=== PATIENT | female | born 1955 | race Hispanic/Latino ===

== ENCOUNTER 2018-10-06 12:44 | Emergency (ER) | payer SELFPAY | END 2018-10-06 13:45 | disposition home or self-care (01) | LOC: EDH 12:44 | DX: S21.90XA Unspecified open wound of unspecified part of thorax, initial encounter (principal); I25.10 Atherosclerotic heart disease of native coronary artery without angina pectoris; E11.9 Type 2 diabetes mellitus without complications; I10 Essential (primary) hypertension; E78.5 Hyperlipidemia, unspecified; Z98.890 Other specified postprocedural states; X58.XXXA Exposure to other specified factors, initial encounter; Y93.89 Activity, other specified; Y92.89 Other specified places as the place of occurrence of the external cause; Y99.8 Other external cause status | CPT/HCPCS: 99281 ==

== ENCOUNTER 2019-05-06 01:45 | Inpatient (IN) | payer OTHER, SELFPAY ==
[~2019-05-06] VITALS: Ht 154.9 cm; Wt 78.8 kg
[2019-05-06] MEDS ORDERED: ASPIRIN 325 MG TABLET ONE (02:01)
[2019-05-06] MEDS ORDERED: NITROGLYCERIN 1GM/1 INCH PACKET TD ONE (02:02)
[2019-05-06 02:14] LABS: BASOPHILS % (AUTO) 0.9 % (0.0-5.0); EOSINOPHILS % (AUTO) 1.6 % (0.0-8.0); HEMATOCRIT 39.4 % (36-48); LYMPHOCYTES % (AUTO) 33.5 % (21.0-51.0); MEAN CORPUSCULAR HEMOGLOBIN 30.5 pg (27.0-33.0); MEAN CORPUSCULAR HGB CONC 33.5 g/dL (32.0-36.0); MONOCYTES % (AUTO) 10.4 % (3.0-13.0); NEUTROPHILS % (AUTO) 53.6 % (40.0-77.0); NUCLEATED RED BLOOD CELLS 0.1 % (0.0-0.19); PLATELET COUNT (AUTO) 192 K/uL (130-400); RED BLOOD CELL COUNT(AUTO) 4.33 MIL/uL (4.00-5.50); WHITE BLOOD COUNT (AUTO) 9.8 K/uL (4.8-10.8)
[2019-05-06 02:25] LABS: INR 0.94 (0.85-1.15); PARTIAL THROMBOPLASTIN TIME 25.6 SEC (26.3-35.5); PROTHROMBIN TIME 9.9 SEC (9.6-11.6)
[2019-05-06 02:26] LABS: CREATININE 0.8 mg/dL (0.5-1.5)
[2019-05-06 02:30] LABS: ALBUMIN 3.7 g/dL (3.5-5.0); BILIRUBIN,TOTAL 0.3 mg/dL (0.2-1.0); TOTAL PROTEIN, SERUM 7.9 g/dL (6.0-8.3)
[2019-05-06] MEDS ORDERED: ONDANSETRON HCL 4 MG/2 ML VIAL IV PRN (06:00)
[2019-05-06] MEDS ORDERED: HYDRALAZINE HCL 20 MG/ML VIAL IV PRN (06:00)
[2019-05-06] MEDS ORDERED: ACETAMINOPHEN 325 MG TAB PO PRN (06:00)
[2019-05-06] MEDS ORDERED: NITROGLYCERIN 0.4 MG SL TAB SL PRN (06:00)
[2019-05-06] MEDS ORDERED: MORPHINE SULFATE 2 MG/ML 1ML SYG IV PRN (06:00)
--- NOTE | 2019-05-06 06:30 | NUR ---
REPORT RECEIVED FROM NELLIE GARCIA.
[2019-05-06] MEDS: INSULIN HUMULIN R 100 UNIT/ML 3ML SQ SCH ×4 (06:50→21:00)
--- NOTE | 2019-05-06 06:50 | NUR ---
PT ARRIVED TO UNIT AT THIS TIME. FAMILY AT BEDSIDE. NO DISTRESS NOTED. PT ADMITTED DUE TO CHEST PAIN THAT HAS BEEN OCCURRING FOR A FEW DAYS. HAD A STRESS TEST AT [facility], ABNORMAL DUE TO ANTERIOR WALL ISCHEMIA. PT HAS HAD A CABG IN 2010. NO PAIN AT THIS TIME.
[2019-05-06 06:51] VITALS: BP 136/75
[2019-05-06 07:46] LABS: CHOLESTEROL 253 mg/dL (<200); HDL CHOLESTEROL 53 mg/dL (35-85); LDL DIRECT 176 mg/dL (0-99); TRIGLYCERIDES 162 mg/dL (30-200)
[2019-05-06 07:46] LABS: HEMOGLOBIN A1C 7.9 % (4.0-6.0)
[2019-05-06] MEDS ORDERED: ENOXAPARIN SODIUM 40 MG/0.4 ML SYRINGE SQ SCH (09:00)
[2019-05-06] MEDS: METOPROLOL TARTRATE 25 MG TAB PO SCH ×2 (10:03→19:58)
[2019-05-06] MEDS: FAMOTIDINE 20MG TAB 20 MG TAB PO SCH ×2 (10:03→19:58)
[2019-05-06] MEDS ORDERED: CHOL200074 PO (10:30)
[2019-05-06] MEDS ORDERED: GLIP5TAB PO (10:30)
[2019-05-06] MEDS ORDERED: METO-391 PO (10:30)
[2019-05-06] MEDS ORDERED: ROSU40 PO (10:30)
[2019-05-06] MEDS ORDERED: SITA1TAB2 PO (10:30)
[2019-05-06] MEDS ORDERED: ASPI-555 PO (10:30)
[2019-05-06] MEDS ORDERED: LISI10TA7 PO (10:30)
[2019-05-06] MEDS ORDERED: CLOP75TA32 PO (10:30)
[2019-05-06] MEDS ORDERED: ARTIFICAL TEARS SOL 15 ML OU PRN (10:45)
[2019-05-06 11:30] VITALS: BP 132/67
[2019-05-06] MEDS ORDERED: SODIUM CHLORIDE 0.9% 250 ML IV ONE (12:25)
[2019-05-06] MEDS ORDERED: HEPARIN SODIUM 1000UNIT/ML 10ML VIAL IV ONE (14:22)
[2019-05-06] MEDS ORDERED: PHENYLEPHRINE HCL 10 MG/ML 1ML VIAL IV ONE (14:22)
[2019-05-06 15:00] VITALS: BP 101/49
--- NOTE | 2019-05-06 15:38 | NUR ---
D/C PLAN CM spoke to pt regarding d/c planning. Pt is ind. and lives with spouse. States spouse can assist in care if needed. Pt follows up at [facility] in [place]. CM provided community resources packet. Plan to home. CM to f/u. Addendum: 05/06/19 at 1539 by RICH SCOTT CM Amended: Links added.
[2019-05-06 19:15] VITALS: BP 128/67
[2019-05-06] MEDS ORDERED: ATORVASTATIN CALCIUM 20 MG TABLET PO SCH (21:00)
[2019-05-06 23:08] VITALS: BP 126/50
[2019-05-07] VITALS (19 sets, daily range): BP systolic 110–225; BP diastolic 49–91
--- NOTE | 2019-05-07 00:15 | NUR ---
PT SIGNED CONSENT FOR [facility] AT THIS TIME. DAUGHTER AT BEDSIDE. AA03. ESVIN. PT ABLE TO SIGN CONSENT. AWARE OF RISKS. AWARE OF NPO OF MIDNIGHT.
[2019-05-07 04:21] LABS: BASOPHILS % (AUTO) 0.8 % (0.0-5.0); EOSINOPHILS % (AUTO) 1.6 % (0.0-8.0); HEMATOCRIT 36.1 % (36-48); LYMPHOCYTES % (AUTO) 39.7 % (21.0-51.0); MEAN CORPUSCULAR HEMOGLOBIN 30.5 pg (27.0-33.0); MEAN CORPUSCULAR HGB CONC 33.8 g/dL (32.0-36.0); MEAN CORPUSCULAR VOLUME 90.2 fL (79-99); MONOCYTES % (AUTO) 10.4 % (3.0-13.0); NEUTROPHILS % (AUTO) 47.5 % (40.0-77.0); PLATELET COUNT (AUTO) 199 K/uL (130-400); RED CELL DISTRIBUTION WIDTH 12.9 % (11.0-15.5); WHITE BLOOD COUNT (AUTO) 8.1 K/uL (4.8-10.8)
[2019-05-07 04:31] LABS: CREATININE 0.9 mg/dL (0.5-1.5); POTASSIUM 4.3 mmol/L (3.5-5.1)
[2019-05-07] MEDS: INSULIN HUMULIN R 100 UNIT/ML 3ML SQ SCH ×2 (05:47→11:30)
--- NOTE | 2019-05-07 07:35 | NUR ---
ASSESSMENT ENCOUNTERED PT A&OX3, CALM COOPERATIVE AND DOES NOT APPEAR TO BE IN ANY DISTRESS NOR ANY NEURO DEFICITS PRESENT. PT DENIES PAIN, SOB, NAUSEA. PT IS AMBULATORY, GAIT STEADY AND STRONG WITH STAND BY ASSIST. PT IS NPO FOR [facility] BY DR ALVARES. CALL LIGHT WITHIN REACH, FAMILY AT BEDSIDE.
[2019-05-07] MEDS: METOPROLOL TARTRATE 25 MG TAB PO SCH (07:51)
[2019-05-07] MEDS ORDERED: CLOPIDOGREL BISULFATE 75 MG TAB PO SCH (09:00)
[2019-05-07] MEDS ORDERED: ASPIRIN 81 MG EC TAB PO SCH (09:00)
[2019-05-07] MEDS: FAMOTIDINE 20MG TAB 20 MG TAB PO SCH ×2 (09:00→21:00)
[2019-05-07] MEDS ORDERED: ASPIRIN 325 MG TABLET PO SCH (09:00)
[2019-05-07] MEDS: EZETIMIBE 10 MG TAB PO SCH (09:00)
[2019-05-07] MEDS ORDERED: LIDOCAINE HCL 1% 20 ML VIAL ONE (13:20)
[2019-05-07] MEDS ORDERED: IOHEXOL 350 MG/ML 100ML INFUS..BTL IV ONE (13:21)
[2019-05-07] MEDS ORDERED: HEPARIN SODIUM 1000UNIT/ML 10ML VIAL ONE ×2 (13:21→15:49)
[2019-05-07] MEDS ORDERED: IOHEXOL-350 50ML VIAL IV ONE (13:21)
[2019-05-07] MEDS ORDERED: IOHEXOL-350 75 ML VIAL IV ONE (14:06)
[2019-05-07] MEDS ORDERED: MORPHINE SULFATE 2 MG/ML 1ML SYG ONE (14:20)
[2019-05-07] MEDS ORDERED: ASPIRIN 325MG EC TAB 325 MG TABLET.DR PO ONE (14:26)
[2019-05-07 15:19] LABS: HEMATOCRIT 39.2 % (36-48); MEAN CORPUSCULAR HEMOGLOBIN 30.6 pg (27.0-33.0); MEAN CORPUSCULAR HGB CONC 33.6 g/dL (32.0-36.0); MEAN CORPUSCULAR VOLUME 90.9 fL (79-99); NUCLEATED RED BLOOD CELLS 0.1 % (0.0-0.19); PLATELET COUNT (AUTO) 207 K/uL (130-400); RED BLOOD CELL COUNT(AUTO) 4.31 MIL/uL (4.00-5.50); RED CELL DISTRIBUTION WIDTH 13.1 % (11.0-15.5); WHITE BLOOD COUNT (AUTO) 8.9 K/uL (4.8-10.8)
[2019-05-07 15:27] LABS: CREATININE 0.5 mg/dL (0.5-1.5); POTASSIUM 3.5 mmol/L (3.5-5.1)
[2019-05-07] MEDS ORDERED: NITROGLYCERIN 50 MG/D5% WATER 0 BOT ONE (15:31)
[2019-05-07 15:33] LABS: INR 1.07 (0.85-1.15); PROTHROMBIN TIME 11.2 SEC (9.6-11.6)
--- NOTE | 2019-05-07 15:45 | NUR ---
ULTRA SOUND OF CAROTID DONE AT THIS TIME. Addendum: 05/07/19 at 1612 by HONEY BAXTER RN RN Amended: Links added.
--- NOTE | 2019-05-07 15:45 | NUR ---
PT TO PACU, AWAKE AND ALERT. PT ABLE TO ANSWER HER QUESTIONS, DENIES CHEST PAIN AT THIS TIME. PT WITH RT FEMORAL LINE, INTACT. PT INSTRUCTED TO KEEP HER RIGHT LEG STRAIGHT. PEDAL PULSES BY DOPPLER TO BILATERAL LOWER EXT. RIGHT ARM IV KVO NORMAL SALINE. PT RESTING WELL, FAMILY CALLED TO BE WITH PT. Addendum: 05/07/19 at 1602 by HONEY BAXTER RN RN Amended: Links added.
[2019-05-07] MEDS ORDERED: PROTAMINE SULFATE 10 MG/ML 25ML VIAL IV ONE (15:49)
[2019-05-07] MEDS ORDERED: AMINOCAPROIC ACID 250 MG/ML 20 ML VIAL IV ONE (15:49)
[2019-05-07] MEDS ORDERED: NOREPINEPHRINE BITARTRATE 1 MG/1 ML ML IV ONE (15:49)
[2019-05-07] MEDS ORDERED: EPINEPHRINE 1 MG/ML AMPULE ONE (15:49)
[2019-05-07] MEDS ORDERED: PROPOFOL 10 MG/ML 20ML VIAL IV ONE (15:49)
[2019-05-07] MEDS ORDERED: SODIUM BICARB 50MEQ 50ML VIAL ONE ×3 (15:49→23:42)
[2019-05-07] MEDS ORDERED: LIDOCAINE PF 2% 5ML ABBOJECT ONE ×2 (15:49→18:48)
[2019-05-07] MEDS ORDERED: ESMOLOL HCL 10 MG/ML 10 ML VIAL ONE ×2 (15:49→18:48)
[2019-05-07] MEDS ORDERED: FENTANYL CITRATE PF 50 MCG/1 ML 20ML VIAL IJ ONE (15:50)
[2019-05-07] MEDS ORDERED: ROCURONIUM 10MG/1ML SYR 10 MG/ML ML ONE ×2 (15:50→17:50)
[2019-05-07] MEDS ORDERED: MIDAZOLAM HCL 1 MG/ML 2ML VIAL ONE (15:50)
[2019-05-07] MEDS ORDERED: NITROGLYCERIN 50 MG/D5% WATER 1 BOT ONE (15:52)
[2019-05-07] MEDS ORDERED: AMIODARONE HCL 50 MG/ML 3 ML VIAL ONE (15:53)
[2019-05-07 15:54] LABS: PARTIAL THROMBOPLASTIN TIME > 120.0 SEC (26.3-35.5)
[2019-05-07] MEDS ORDERED: BACITRACIN 50,000 UNIT VIAL ONE (16:05)
[2019-05-07] MEDS ORDERED: PAPAVERINE HCL 30 MG/ML 2ML VIAL ONE (16:05)
--- NOTE | 2019-05-07 16:13 | NUR ---
DR. LINDA TO SEE PT, PROCEDURE EXPLAINED. PT REMAINS STABLE. FAMILY A CHANCE TO SEE PT. FEMORAL LINE INTACT. PEDAL PULSES BY DOPPLER. PT REMAINS STABLE. Addendum: 05/07/19 at 1615 by HONEY BAXTER RN RN Amended: Links added.
[2019-05-07] MEDS ORDERED: CEFAZOLIN SODIUM 1 GM VIAL ONE ×2 (16:14→20:03)
--- NOTE | 2019-05-07 16:17 | NUR ---
PT TRANSFERRED TO OR, BY RADHA VILLA. RADHA VILLA ALSO TOLD PTT OVER 120 AT 1550
[2019-05-07 16:54] LABS: ABG BASE EXCESS -0.9 mmol/L (-2.0-3.0); ABG HCO3 20.3 mmol/L (21.0-28.0); ABG OXYGEN SATURATION 99.3 % (95.0-99.0); ABG PCO2 25 mmHg (32-45)
[2019-05-07 18:24] LABS: ABG BASE EXCESS 4.4 mmol/L (-2.0-3.0); ABG OXYGEN SATURATION 99.2 % (95.0-99.0); ABG PCO2 33 mmHg (32-45)
[2019-05-07 18:44] LABS: ABG BASE EXCESS 1.6 mmol/L (-2.0-3.0); ABG OXYGEN SATURATION 99.2 % (95.0-99.0); ABG PCO2 31 mmHg (32-45)
[2019-05-07] MEDS ORDERED: POTASSIUM CHLORIDE 20MEQ/100ML 300 ML IV ONE (18:46)
[2019-05-07] MEDS ORDERED: SODIUM CHLORIDE 0.9% 1000ML 1,000 ML IV SCH (19:30)
[2019-05-07] MEDS ORDERED: SODIUM CHLORIDE 0.9% 10 ML VIAL IVP PRN (19:30)
[2019-05-07] MEDS ORDERED: DEXTROSE 50%-WATER 50 ML DISP.SYRIN IV PRN (19:30)
[2019-05-07] MEDS ORDERED: ACETAMINOPHEN 650 MG SUPPOSITORY RC PRN (19:30)
[2019-05-07] MEDS ORDERED: MORPHINE SULFATE 4 MG/1ML SYG IV PRN (19:30)
[2019-05-07] MEDS ORDERED: AMINOCAPROIC ACID 15,000 MG in SODIUM CHLORIDE 0.9% 250 ML IV SCH (19:30)
[2019-05-07] MEDS ORDERED: ACETAMINOPHEN 325 MG TAB PO PRN (19:30)
[2019-05-07] MEDS ORDERED: GLUCAGON 1MG KIT 1 MG ML IM PRN (19:30)
[2019-05-07] MEDS ORDERED: CALCIUM GLUCONATE 1 GM in SODIUM CHLORIDE 0.9% 50 ML IV PRN (19:30)
[2019-05-07] MEDS ORDERED: MORPHINE SULFATE 2 MG/ML 1ML SYG IV PRN (19:30)
[2019-05-07] MEDS ORDERED: ALBUMIN (HUMAN) 5% 250 ML IV PRN (19:30)
[2019-05-07] MEDS ORDERED: EPINEPHRINE 8 MG in DEXTROSE 5%-WATER 250 ML IV PRN (19:30)
[2019-05-07] MEDS ORDERED: POTASSIUM PHOS 15 mMOL+NS250ML 250 ML IV PRN (19:30)
[2019-05-07] MEDS ORDERED: SODIUM CHLORIDE 0.9% 250 ML IV PRN (19:30)
[2019-05-07] MEDS ORDERED: SODIUM CHLORIDE 0.9% 500ML 500 ML IV SCH (19:30)
[2019-05-07] MEDS ORDERED: NITROGLYCERIN 50 MG/D5% WATER 250 BOT IV SCH (19:30)
[2019-05-07] MEDS ORDERED: PROPOFOL 1000 MG/100 ML 100 ML IV PRN (19:30)
[2019-05-07] MEDS ORDERED: NOREPINEPHRINE 4MG/NS 250ML 250 ML IV PRN (19:30)
[2019-05-07 19:47] LABS: ABG BASE EXCESS -0.7 mmol/L (-2.0-3.0); ABG HCO3 22.3 mmol/L (21.0-28.0); ABG PCO2 31 mmHg (32-45)
[2019-05-07 20:49] LABS: ABG BASE EXCESS -1.5 mmol/L (-2.0-3.0); ABG HCO3 20.8 mmol/L (21.0-28.0); ABG OXYGEN SATURATION 98.8 % (95.0-99.0); ABG PCO2 28 mmHg (32-45)
[2019-05-07 20:53] LABS: HEMATOCRIT 31.6 % (36-48); MEAN CORPUSCULAR HEMOGLOBIN 30.3 pg (27.0-33.0); MEAN CORPUSCULAR HGB CONC 33.6 g/dL (32.0-36.0); MEAN CORPUSCULAR VOLUME 90.1 fL (79-99); PLATELET COUNT (AUTO) 284 K/uL (130-400); RED BLOOD CELL COUNT(AUTO) 3.51 MIL/uL (4.00-5.50); RED CELL DISTRIBUTION WIDTH 12.9 % (11.0-15.5)
[2019-05-07 21:00] LABS: WHITE BLOOD COUNT (AUTO) 32.4 K/uL (4.8-10.8)
[2019-05-07] MEDS: ATORVASTATIN CALCIUM 20 MG TABLET PO SCH (21:00)
[2019-05-07] MEDS ORDERED: FAMOTIDINE/PF 20 MG/2 ML VIAL IV SCH (21:00)
[2019-05-07 21:01] LABS: CREATININE 0.8 mg/dL (0.5-1.5); POTASSIUM 3.8 mmol/L (3.5-5.1)
[2019-05-07 21:03] LABS: INR 1.1 (0.85-1.15); PARTIAL THROMBOPLASTIN TIME 22.9 SEC (26.3-35.5); PROTHROMBIN TIME 11.5 SEC (9.6-11.6)
[2019-05-07 21:05] LABS: MAGNESIUM 1.2 mg/dL (1.80-2.40); PHOSPHORUS 2.7 mg/dL (2.5-4.9)
[2019-05-07 21:50] LABS: BAND NEUTROPHILS % (MANUAL) 20 % (0-2); LYMPHOCYTES % (MANUAL) 12 % (22-44); MAN.DIFF COMMENT-IMPRESSION MANUAL DIFFERENTIAL; MONOCYTES % (MANUAL) 2 % (2-9); SEGMENTED NEUTROPHILS % 66 % (40-70)
[2019-05-07] MEDS ORDERED: CALCIUM GLUCONATE 1 GM/10 ML VIAL IV ONE ×2 (22:00→22:38)
[2019-05-07] MEDS: INSULIN REGULAR, HUMAN 3ML 100 UNIT in SODIUM CHLORIDE 0.9% 99 ML IV SCH ×2 (22:22)
[2019-05-07 22:35] LABS: ABG BASE EXCESS 1.2 mmol/L (-2.0-3.0); ABG HCO3 23.3 mmol/L (21.0-28.0); ABG OXYGEN SATURATION 98.7 % (95.0-99.0); ABG PCO2 29 mmHg (32-45)
[2019-05-07] MEDS: POTASSIUM CHLORIDE 20MEQ/100ML 100 ML IV PRN (22:40)
[2019-05-07 23:38] LABS: ABG BASE EXCESS -2.6 mmol/L (-2.0-3.0); ABG HCO3 21.9 mmol/L (21.0-28.0); ABG OXYGEN SATURATION 98.4 % (95.0-99.0); ABG PCO2 37 mmHg (32-45)
[2019-05-08] VITALS (44 sets, daily range): BP systolic 77–188; BP diastolic 35–84
[2019-05-08 00:28] LABS: ABG BASE EXCESS 1.2 mmol/L (-2.0-3.0); ABG HCO3 25.7 mmol/L (21.0-28.0); ABG OXYGEN SATURATION 97.4 % (95.0-99.0); ABG PCO2 40 mmHg (32-45)
[2019-05-08] MEDS: ONDANSETRON HCL 4 MG/2 ML VIAL IV PRN ×3 (01:03→17:28)
[2019-05-08] MEDS: CEFAZOLIN SODIUM 1 GM VIAL IV SCH ×3 (01:03→17:22)
[2019-05-08] MEDS: POTASSIUM CHLORIDE 20MEQ/100ML 100 ML IV PRN (01:05)
[2019-05-08] MEDS: TRAMADOL HCL 50 MG TABLET PO PRN ×2 (02:17→08:03)
[2019-05-08 02:22] LABS: ABG BASE EXCESS 3.3 mmol/L (-2.0-3.0); ABG HCO3 28.2 mmol/L (21.0-28.0); ABG OXYGEN SATURATION 97.8 % (95.0-99.0); ABG PCO2 44 mmHg (32-45)
[2019-05-08 05:08] LABS: HEMATOCRIT 31.2 % (36-48); MEAN CORPUSCULAR HEMOGLOBIN 30.7 pg (27.0-33.0); MEAN CORPUSCULAR HGB CONC 34.1 g/dL (32.0-36.0); MEAN CORPUSCULAR VOLUME 90.1 fL (79-99); PLATELET COUNT (AUTO) 256 K/uL (130-400); RED BLOOD CELL COUNT(AUTO) 3.46 MIL/uL (4.00-5.50); RED CELL DISTRIBUTION WIDTH 13.1 % (11.0-15.5); WHITE BLOOD COUNT (AUTO) 18.7 K/uL (4.8-10.8)
[2019-05-08 05:34] LABS: ALBUMIN 2.6 g/dL (3.5-5.0); CREATININE 0.8 mg/dL (0.5-1.5); MAGNESIUM 1.9 mg/dL (1.80-2.40); PHOSPHORUS 1.5 mg/dL (2.5-4.9); POTASSIUM 3.6 mmol/L (3.5-5.1)
[2019-05-08 06:01] LABS: INR 1.02 (0.85-1.15); PARTIAL THROMBOPLASTIN TIME 24.9 SEC (26.3-35.5); PROTHROMBIN TIME 10.7 SEC (9.6-11.6)
[2019-05-08] MEDS: MAGNESIUM 2GM PREMIX 50ML 50 ML IV PRN (06:04)
[2019-05-08] MEDS ORDERED: PHARMACY COMMUNICATION MISC SCH (07:00)
[2019-05-08] MEDS: FAMOTIDINE/PF 20 MG/2 ML VIAL IV SCH ×2 (08:46→20:11)
[2019-05-08] MEDS: FAMOTIDINE 20MG TAB 20 MG TAB PO SCH ×2 (09:00→20:11)
[2019-05-08] MEDS: ASPIRIN 81MG TAB.CHEW PO SCH (10:06)
[2019-05-08] MEDS: EZETIMIBE 10 MG TAB PO SCH (10:06)
[2019-05-08] MEDS: METOPROLOL TARTRATE 25 MG TAB PO SCH ×2 (10:08→20:12)
[2019-05-08] MEDS: FUROSEMIDE 20 MG TABLET PO SCH ×2 (10:36→17:20)
[2019-05-08] MEDS: ACETAMINOPHEN 325 MG TAB PO PRN ×2 (12:38→17:21)
[2019-05-08] MEDS ORDERED: FUROSEMIDE 20 MG TABLET PO SCH (17:00)
[2019-05-08] MEDS: INSULIN REGULAR, HUMAN 3ML 100 UNIT in SODIUM CHLORIDE 0.9% 99 ML IV SCH ×2 (18:32)
[2019-05-08] MEDS: ATORVASTATIN CALCIUM 20 MG TABLET PO SCH (20:11)
[2019-05-09] VITALS (28 sets, daily range): BP systolic 92–131; BP diastolic 43–72
[2019-05-09 04:39] LABS: BASOPHILS % (AUTO) 0.1 % (0.0-5.0); HEMATOCRIT 28.8 % (36-48); LYMPHOCYTES % (AUTO) 8.6 % (21.0-51.0); MEAN CORPUSCULAR HEMOGLOBIN 30.7 pg (27.0-33.0); MEAN CORPUSCULAR HGB CONC 33.5 g/dL (32.0-36.0); MEAN CORPUSCULAR VOLUME 91.4 fL (79-99); MONOCYTES % (AUTO) 7.2 % (3.0-13.0); NEUTROPHILS % (AUTO) 84.1 % (40.0-77.0); PLATELET COUNT (AUTO) 207 K/uL (130-400); RED BLOOD CELL COUNT(AUTO) 3.16 MIL/uL (4.00-5.50); RED CELL DISTRIBUTION WIDTH 13.1 % (11.0-15.5); WHITE BLOOD COUNT (AUTO) 19.3 K/uL (4.8-10.8)
[2019-05-09 04:45] LABS: ALBUMIN 2.5 g/dL (3.5-5.0); CREATININE 0.9 mg/dL (0.5-1.5); MAGNESIUM 2.9 mg/dL (1.80-2.40); PHOSPHORUS 4.5 mg/dL (2.5-4.9); POTASSIUM 4.5 mmol/L (3.5-5.1)
[2019-05-09] MEDS: TRAMADOL HCL 50 MG TABLET PO PRN ×2 (05:03→23:05)
[2019-05-09] MEDS: EZETIMIBE 10 MG TAB PO SCH (08:54)
[2019-05-09] MEDS: FAMOTIDINE 20MG TAB 20 MG TAB PO SCH ×2 (08:54→21:41)
[2019-05-09] MEDS: FUROSEMIDE 20 MG TABLET PO SCH ×2 (08:54→17:43)
[2019-05-09] MEDS: METOPROLOL TARTRATE 25 MG TAB PO SCH ×2 (08:55→21:41)
[2019-05-09] MEDS: ASPIRIN 81MG TAB.CHEW PO SCH (08:55)
[2019-05-09] MEDS: ACETAMINOPHEN 325 MG TAB PO PRN (08:56)
[2019-05-09] MEDS: ENOXAPARIN SODIUM 30 MG/0.3 ML SQ SCH (09:00)
[2019-05-09] MEDS: INSULIN HUMULIN R 100 UNIT/ML 3ML SQ SCH ×3 (11:30→21:43)
--- NOTE | 2019-05-09 19:05 | NUR ---
Received pt laying in bed,family here to bedside.Pt. denies any discomfort.Pt. already voided post catheter removal per dayshift .Right IJ and chest tube removed per day shift.Call light placed within reach,instructed to use call light for assistance.
[2019-05-09] MEDS: ATORVASTATIN CALCIUM 40 MG TABLET PO SCH (21:41)
[2019-05-10] VITALS (8 sets, daily range): BP systolic 103–135; BP diastolic 49–66
[2019-05-10 03:54] LABS: HEMATOCRIT 26.3 % (36-48); MEAN CORPUSCULAR HEMOGLOBIN 30.3 pg (27.0-33.0); MEAN CORPUSCULAR HGB CONC 32.9 g/dL (32.0-36.0); MEAN CORPUSCULAR VOLUME 92.1 fL (79-99); PLATELET COUNT (AUTO) 186 K/uL (130-400); RED BLOOD CELL COUNT(AUTO) 2.85 MIL/uL (4.00-5.50); RED CELL DISTRIBUTION WIDTH 13.2 % (11.0-15.5); WHITE BLOOD COUNT (AUTO) 15.7 K/uL (4.8-10.8)
[2019-05-10 04:05] LABS: CREATININE 0.9 mg/dL (0.5-1.5); POTASSIUM 4.3 mmol/L (3.5-5.1)
[2019-05-10] MEDS: INSULIN HUMULIN R 100 UNIT/ML 3ML SQ SCH ×4 (06:37→20:58)
[2019-05-10] MEDS: EZETIMIBE 10 MG TAB PO SCH (08:21)
[2019-05-10] MEDS: METOPROLOL TARTRATE 25 MG TAB PO SCH ×2 (08:21→20:56)
[2019-05-10] MEDS: FAMOTIDINE 20MG TAB 20 MG TAB PO SCH ×2 (08:21→20:56)
[2019-05-10] MEDS: FUROSEMIDE 20 MG TABLET PO SCH ×2 (08:21→16:44)
[2019-05-10] MEDS: ASPIRIN 81MG TAB.CHEW PO SCH (08:21)
[2019-05-10] MEDS: ENOXAPARIN SODIUM 30 MG/0.3 ML SQ SCH (08:26)
[2019-05-10] MEDS: ACETAMINOPHEN 325 MG TAB PO PRN ×2 (08:31→20:56)
[2019-05-10] MEDS: TRAMADOL HCL 50 MG TABLET PO PRN (18:20)
[2019-05-10] MEDS: ATORVASTATIN CALCIUM 40 MG TABLET PO SCH (20:56)
--- NOTE | 2019-05-10 21:53 | NUR ---
Pt. transfered to room 215 after bedside report given to ICU nurse using SBAR all questions answered.Reviewed meds,labs ,V/S and orders.Pt. condition remained stable. to bedside.
[2019-05-11] VITALS: BP 104/51
[2019-05-11 04:00] VITALS: BP 121/55
[2019-05-11] MEDS: TRAMADOL HCL 50 MG TABLET PO PRN ×3 (04:23→22:29)
[2019-05-11 04:25] LABS: BASOPHILS % (AUTO) 0.6 % (0.0-5.0); EOSINOPHILS % (AUTO) 0.9 % (0.0-8.0); HEMATOCRIT 24.5 % (36-48); LYMPHOCYTES % (AUTO) 24.5 % (21.0-51.0); MEAN CORPUSCULAR HEMOGLOBIN 30.5 pg (27.0-33.0); MEAN CORPUSCULAR HGB CONC 33.6 g/dL (32.0-36.0); MEAN CORPUSCULAR VOLUME 90.7 fL (79-99); MONOCYTES % (AUTO) 9.4 % (3.0-13.0); NEUTROPHILS % (AUTO) 64.6 % (40.0-77.0); PLATELET COUNT (AUTO) 196 K/uL (130-400); WHITE BLOOD COUNT (AUTO) 9.2 K/uL (4.8-10.8)
[2019-05-11 04:56] LABS: CREATININE 0.8 mg/dL (0.5-1.5); POTASSIUM 3.6 mmol/L (3.5-5.1)
[2019-05-11] MEDS: INSULIN HUMULIN R 100 UNIT/ML 3ML SQ SCH ×4 (07:20→21:20)
[2019-05-11 08:00] VITALS: BP 138/65
[2019-05-11] MEDS: ASPIRIN 81MG TAB.CHEW PO SCH (08:14)
[2019-05-11] MEDS: FAMOTIDINE 20MG TAB 20 MG TAB PO SCH ×2 (08:14→21:18)
[2019-05-11] MEDS: FUROSEMIDE 20 MG TABLET PO SCH ×2 (08:15→17:37)
[2019-05-11] MEDS: METOPROLOL TARTRATE 25 MG TAB PO SCH ×2 (08:15→21:18)
[2019-05-11] MEDS: ENOXAPARIN SODIUM 30 MG/0.3 ML SQ SCH (08:15)
[2019-05-11] MEDS: EZETIMIBE 10 MG TAB PO SCH (08:15)
[2019-05-11 12:00] VITALS: BP 122/63
--- NOTE | 2019-05-11 13:08 | NUR ---
DC PLAN SPOKE TO PATIENT. RE EDUCATED ON PATIENT GOING HOME. THERE ARE NO [facility] SN[facility] FOR REHAB. PATIENT ABLE TO AMBULATE HAS FAMILY THAT CAN HELP. Addendum: 05/11/19 at 1309 by CROW THORPE RN CM Amended: Links added.
[2019-05-11 16:19] VITALS: BP 130/69
[2019-05-11 20:00] VITALS: BP 123/54
[2019-05-11] MEDS: ATORVASTATIN CALCIUM 40 MG TABLET PO SCH (21:18)
[2019-05-12] VITALS (7 sets, daily range): BP systolic 99–148; BP diastolic 45–66
[2019-05-12] MEDS: INSULIN HUMULIN R 100 UNIT/ML 3ML SQ SCH ×4 (07:26→20:42)
[2019-05-12] MEDS: METOPROLOL TARTRATE 25 MG TAB PO SCH ×2 (08:40→21:00)
[2019-05-12] MEDS: FAMOTIDINE 20MG TAB 20 MG TAB PO SCH ×2 (08:40→21:00)
[2019-05-12] MEDS: FUROSEMIDE 20 MG TABLET PO SCH ×2 (08:41→18:23)
[2019-05-12] MEDS: ASPIRIN 81MG TAB.CHEW PO SCH (08:41)
[2019-05-12] MEDS: ENOXAPARIN SODIUM 30 MG/0.3 ML SQ SCH (08:41)
[2019-05-12] MEDS: EZETIMIBE 10 MG TAB PO SCH (08:41)
[2019-05-12] MEDS ORDERED: POTASSIUM CHLORIDE 10% ELIXIR 20 MEQ/15 ML UDCUP PO PRN (09:45)
[2019-05-12] MEDS ORDERED: POTASSIUM CHLORIDE 20MEQ/100ML 100 ML IV PRN (09:45)
[2019-05-12] MEDS ORDERED: LIDOCAINE HCL-MPF 1% 2ML VIAL IV PRN (09:45)
[2019-05-12] MEDS ORDERED: FUROSEMIDE 10 MG/ML 4ML VIAL IV SCH (10:30)
[2019-05-12] MEDS ORDERED: CIPROFLOXACIN HCL 250 MG TABLET PO SCH (10:30)
[2019-05-12] MEDS: POTASSIUM CHLORIDE 20 MEQ ERTAB PO PRN ×2 (10:32→15:16)
[2019-05-12] MEDS: TRAMADOL HCL 50 MG TABLET PO PRN (10:50)
[2019-05-12] MEDS: LEVOFLOXACIN 500 MG TABLET PO SCH (10:51)
[2019-05-12] MEDS: ONDANSETRON HCL 4 MG/2 ML VIAL IV PRN (12:12)
--- NOTE | 2019-05-12 15:15 | NUR ---
TRANSFER PATIENT TRANSFERRED TO ROOM 228 AND REPORT GIVEN TO RADHA WIGGINS; PATIENT DENIES COMPLAINTS OF NAUSEA OR PAIN AT THIS TIME
[2019-05-12] MEDS: ATORVASTATIN CALCIUM 40 MG TABLET PO SCH (21:00)
[2019-05-13 03:31] VITALS: BP 128/62
[2019-05-13] MEDS: INSULIN HUMULIN R 100 UNIT/ML 3ML SQ SCH ×4 (06:29→21:00)
[2019-05-13] MEDS: METOPROLOL TARTRATE 25 MG TAB PO SCH ×2 (07:21→22:00)
[2019-05-13] MEDS: METFORMIN HCL 500 MG TABLET PO SCH ×2 (07:21→15:41)
[2019-05-13] MEDS: ASPIRIN 81MG TAB.CHEW PO SCH (07:21)
[2019-05-13 07:55] VITALS: BP 125/63
[2019-05-13] MEDS: FAMOTIDINE 20MG TAB 20 MG TAB PO SCH ×2 (09:59→22:00)
[2019-05-13] MEDS: EZETIMIBE 10 MG TAB PO SCH (09:59)
[2019-05-13] MEDS: LINAGLIPTIN 5 MG TABLET PO SCH (09:59)
[2019-05-13] MEDS: LEVOFLOXACIN 500 MG TABLET PO SCH (10:00)
[2019-05-13] MEDS: FUROSEMIDE 20 MG TABLET PO SCH ×2 (10:01→15:41)
[2019-05-13] MEDS: ENOXAPARIN SODIUM 30 MG/0.3 ML SQ SCH (10:01)
[2019-05-13] MEDS: POTASSIUM CHLORIDE 20 MEQ ERTAB PO SCH (10:02)
[2019-05-13 11:57] VITALS: BP 115/58
[2019-05-13] MEDS ORDERED: LACTULOSE 20 GM/30 ML UDCUP PO PRN (13:00)
[2019-05-13 15:45] VITALS: BP 116/58
[2019-05-13 19:43] VITALS: BP 137/63
[2019-05-13] MEDS: ATORVASTATIN CALCIUM 40 MG TABLET PO SCH (22:00)
[2019-05-13] MEDS: TRAMADOL HCL 50 MG TABLET PO PRN (22:01)
[2019-05-13 23:37] VITALS: BP 108/63
[2019-05-14 04:29] VITALS: BP 122/63
[2019-05-14 04:42] LABS: HEMATOCRIT 28.1 % (36-48); MEAN CORPUSCULAR HEMOGLOBIN 30.5 pg (27.0-33.0); MEAN CORPUSCULAR HGB CONC 33.4 g/dL (32.0-36.0); MEAN CORPUSCULAR VOLUME 91.1 fL (79-99); PLATELET COUNT (AUTO) 380 K/uL (130-400); RED BLOOD CELL COUNT(AUTO) 3.09 MIL/uL (4.00-5.50); WHITE BLOOD COUNT (AUTO) 11.7 K/uL (4.8-10.8)
[2019-05-14 04:51] LABS: CREATININE 0.8 mg/dL (0.5-1.5); MAGNESIUM 1.8 mg/dL (1.80-2.40); PHOSPHORUS 3.4 mg/dL (2.5-4.9); POTASSIUM 4.2 mmol/L (3.5-5.1)
[2019-05-14 05:07] LABS: B-TYPE NATRIURETIC PEPTIDE 320 pg/mL (0-100)
[2019-05-14] MEDS: INSULIN HUMULIN R 100 UNIT/ML 3ML SQ SCH ×2 (05:38→12:42)
[2019-05-14 07:45] VITALS: BP 112/55
[2019-05-14] MEDS: ASPIRIN 81MG TAB.CHEW PO SCH (08:47)
[2019-05-14] MEDS: LINAGLIPTIN 5 MG TABLET PO SCH (08:47)
[2019-05-14] MEDS: METFORMIN HCL 500 MG TABLET PO SCH (08:47)
[2019-05-14] MEDS: FAMOTIDINE 20MG TAB 20 MG TAB PO SCH (08:47)
[2019-05-14] MEDS: LEVOFLOXACIN 500 MG TABLET PO SCH (08:47)
[2019-05-14] MEDS: METOPROLOL TARTRATE 25 MG TAB PO SCH (08:47)
[2019-05-14] MEDS: POTASSIUM CHLORIDE 20 MEQ ERTAB PO SCH (08:47)
[2019-05-14] MEDS: EZETIMIBE 10 MG TAB PO SCH (08:49)
[2019-05-14] MEDS: FUROSEMIDE 20 MG TABLET PO SCH (08:49)
[2019-05-14] MEDS: ENOXAPARIN SODIUM 30 MG/0.3 ML SQ SCH (08:50)
[2019-05-14 11:54] VITALS: BP 141/62
[2019-05-14] MEDS: MAGNESIUM 2GM PREMIX 50ML 50 ML IV PRN (12:42)
[2019-05-14 15:40] VITALS: BP 125/60
[2019-05-14] MEDS ORDERED: LEVO500T2 PO (16:30)
[2019-05-14] MEDS ORDERED: TRAM50TA4 PO (16:30)
[2019-05-14] MEDS ORDERED: FURO20TA6 PO (16:30)
[2019-05-14] MEDS ORDERED: METO25 PO (16:30)
[2019-05-14] MEDS ORDERED: LISI2.5T2 PO (16:30)
== END 2019-05-14 18:29 | disposition home or self-care (01) | DRG 232 ==
LOC: EDH 01:45 → EDHIP 01:46 → OBSVTOIN 01:46 → 2DH 06:42 → 2CV 05-07 15:32 → 2BH 05-08 11:34 → 2CH 05-10 21:15 → 2BH 05-11 18:14 → 2DH 05-12 15:27
PROVIDERS: ADMIT Hospitalist; ATTEND Hospitalist
PROC: B2181ZZ Fluoroscopy of Left Internal Mammary Bypass Graft using Low Osmolar Contrast (ICD-10-PCS; 2019-05-07)
PROC: B2151ZZ Fluoroscopy of Left Heart using Low Osmolar Contrast (ICD-10-PCS; 2019-05-07)
PROC: 4A023N7 Measurement of Cardiac Sampling and Pressure, Left Heart, Percutaneous Approach (ICD-10-PCS; 2019-05-07)
PROC: B2131ZZ Fluoroscopy of Multiple Coronary Artery Bypass Grafts using Low Osmolar Contrast (ICD-10-PCS; 2019-05-07)
PROC: 021109W Bypass Coronary Artery, Two Arteries from Aorta with Autologous Venous Tissue, Open Approach (ICD-10-PCS; principal; 2019-05-07 16:30)
PROC: 027034Z Dilation of Coronary Artery, One Artery with Drug-eluting Intraluminal Device, Percutaneous Approach (ICD-10-PCS; 2019-05-07 16:30)
PROC: 06BP4ZZ Excision of Right Saphenous Vein, Percutaneous Endoscopic Approach (ICD-10-PCS; 2019-05-07 16:30)
PROC: B2111ZZ Fluoroscopy of Multiple Coronary Arteries using Low Osmolar Contrast (ICD-10-PCS; 2019-05-07 16:30)
PROC: 30233R1 Transfusion of Nonautologous Platelets into Peripheral Vein, Percutaneous Approach (ICD-10-PCS; 2019-05-14)
DX: T82.898A Other specified complication of vascular prosthetic devices, implants and grafts, initial encounter (principal); I25.110 Atherosclerotic heart disease of native coronary artery with unstable angina pectoris; I16.1 Hypertensive emergency; Z79.899 Other long term (current) drug therapy; E11.9 Type 2 diabetes mellitus without complications; E78.5 Hyperlipidemia, unspecified; R06.89 Other abnormalities of breathing; I10 Essential (primary) hypertension; E78.2 Mixed hyperlipidemia; D50.0 Iron deficiency anemia secondary to blood loss (chronic); E66.9 Obesity, unspecified; Z68.32 Body mass index [BMI] 32.0-32.9, adult; Z87.442 Personal history of urinary calculi; Z95.5 Presence of coronary angioplasty implant and graft; Z99.81 Dependence on supplemental oxygen
CPT/HCPCS: 36415; 36430; 71045; 80048; 80053; 80061; 82040; 82330; 82435; 82550; 82803; 82947; 82948; 83036; 83605; 83735; 83880; 84100; 84132; 84295; 84484; 85018; 85025; 85027; 85610; 85730; 86850; 86900; 86901; 86922; 93005; 93306; 93459; 93880; 94002; 94003; 94150; 94760; 97039; A4606; A7048; C1769; C1884; C1887; C1894; C9604; G0378; J0171; J0282; J0610; J0690; J1644; J1650; J1815; J1940; J2001; J2250; J2370; J2405; J2440; J2704; J2720; J3010; J3475; J3480; J3490; J7030; J7040; J7060; J7120; P9034; Q9967

== ENCOUNTER 2020-05-02 02:24 | Emergency (ER) | payer MEDICARE ==
[~2020-05-02 02:24] MED LIST: ASPI-556 PO; CHOL200074 PO; CLOP75TA32 PO; FURO20TA6 PO; GLIP5TAB PO; LEVO500T2 PO; LISI2.5T2 PO; METO25 PO; ROSU40 PO; SITA1TAB2 PO; TRAM50TA4 PO
[2020-05-02 02:45] LABS: BILIRUBIN,URINE Negative (NEGATIVE); COLOR,URINE Yellow (YELLOW); GLUCOSE, URINE (UA) Negative (NEGATIVE); KETONES,URINE Negative (NEGATIVE); LEUKOCYTE ESTERASE ,URINE Small (NEGATIVE); NITRATE,URINE Negative (NEGATIVE); OCCULT BLOOD,URINE Trace (NEGATIVE); PH,URINE >=9.0 (5.0-8.0); PROTEIN,URINE POS 1+ mg/dL (NEGATIVE)
[2020-05-02 02:46] LABS: APPEARANCE,URINE SLIGHTLY CLOUDY (CLEAR)
[2020-05-02 02:55] LABS: BACTERIA,URINE Few /HPF (None Seen)
[2020-05-02 02:56] LABS: AMORPHOUS SEDIMENT,UR Many /LPF (None Seen)
[2020-05-02] MEDS ORDERED: FENTANYL CITRATE PF 50 MCG/1 ML 2ML VIAL ONE (03:00)
[2020-05-02] MEDS ORDERED: ONDANSETRON HCL 4 MG/2 ML VIAL ONE (03:00)
[2020-05-02 03:10] LABS: BASOPHILS % (AUTO) 0.6 % (0.0-5.0); EOSINOPHILS % (AUTO) 0.8 % (0.0-8.0); LYMPHOCYTES % (AUTO) 24.3 % (21.0-51.0); MEAN CORPUSCULAR HEMOGLOBIN 29.7 pg (27.0-33.0); MEAN CORPUSCULAR HGB CONC 32.5 g/dL (32.0-36.0); MEAN CORPUSCULAR VOLUME 91.4 fL (79-99); MONOCYTES % (AUTO) 8.4 % (3.0-13.0); NEUTROPHILS % (AUTO) 65.6 % (40.0-77.0); PLATELET COUNT (AUTO) 210 K/uL (130-400); RED BLOOD CELL COUNT(AUTO) 3.94 MIL/uL (4.00-5.50); WHITE BLOOD COUNT (AUTO) 10.1 K/uL (4.8-10.8)
[2020-05-02 03:19] LABS: CREATININE 1.1 mg/dL (0.5-1.5); POTASSIUM 3.9 mmol/L (3.5-5.1)
[2020-05-02 03:24] LABS: ALBUMIN 3.5 g/dL (3.5-5.0); BILIRUBIN,TOTAL 0.3 mg/dL (0.2-1.0); TOTAL PROTEIN, SERUM 7.1 g/dL (6.0-8.3)
[2020-05-02] MEDS ORDERED: KETOROLAC TROMETHAMINE 30MG/ML ONE (03:52)
[2020-05-02] MEDS ORDERED: TAMSULOSIN HCL 0.4 MG CAP.ER.24H ONE (04:08)
== END 2020-05-02 05:56 | disposition home or self-care (01) ==
LOC: EDH 02:24
DX: N20.1 Calculus of ureter (principal); N13.4 Hydroureter; I50.9 Heart failure, unspecified; E11.9 Type 2 diabetes mellitus without complications; E78.5 Hyperlipidemia, unspecified; I10 Essential (primary) hypertension
CPT/HCPCS: 36415; 74176; 80053; 81001; 83605; 83690; 85025; 87077; 87088; 87186; 93005; 96374; 96375; 99285; J1885; J2405; J3010